=== PATIENT | male | born 1960 | race Caucasian/White ===

== ENCOUNTER → 2019-11-01 16:20 | Outpatient (BNVA) | payer MEDICAID, SELFPAY | PROVIDERS: Family Provider Internal Medicine; PCP Internal Medicine; Visit Provider Internal Medicine | DX: E03.9 Hypothyroidism, unspecified (principal); F20.0 Paranoid schizophrenia; E11.69 Type 2 diabetes mellitus with other specified complication; E78.5 Hyperlipidemia, unspecified | CPT/HCPCS: 84443 ==

== ENCOUNTER → 2019-11-02 13:50 | Outpatient (BNVA) | payer MEDICAID, SELFPAY | PROVIDERS: Family Provider Internal Medicine; PCP Internal Medicine; Visit Provider Nurse Practitioner | DX: F20.89 Other schizophrenia (principal); F17.210 Nicotine dependence, cigarettes, uncomplicated | CPT/HCPCS: 99213 ==

== ENCOUNTER → 2019-11-30 13:22 | Outpatient (BNVA) | payer MEDICAID, SELFPAY | PROVIDERS: Family Provider Internal Medicine; PCP Internal Medicine; Visit Provider Nurse Practitioner | DX: M47.817 Spondylosis without myelopathy or radiculopathy, lumbosacral region (principal); Z79.891 Long term (current) use of opiate analgesic; Z87.891 Personal history of nicotine dependence | CPT/HCPCS: 99213 ==

== ENCOUNTER → 2020-01-18 07:43 | Outpatient (BNVA) | payer MEDICAID, SELFPAY | PROVIDERS: Family Provider Internal Medicine; PCP Internal Medicine; Visit Provider Nurse Practitioner | DX: M47.817 Spondylosis without myelopathy or radiculopathy, lumbosacral region (principal); F20.0 Paranoid schizophrenia | CPT/HCPCS: 99213 ==

== ENCOUNTER → 2020-03-27 13:54 | Outpatient (BNVA) | payer MEDICAID, SELFPAY | PROVIDERS: Family Provider Internal Medicine; PCP Internal Medicine; Visit Provider Anesthesiology | DX: M47.817 Spondylosis without myelopathy or radiculopathy, lumbosacral region (principal); M51.26 Other intervertebral disc displacement, lumbar region; M51.04 Intervertebral disc disorders with myelopathy, thoracic region; M54.9 Dorsalgia, unspecified; Z79.891 Long term (current) use of opiate analgesic | CPT/HCPCS: 99214 ==

== ENCOUNTER → 2020-04-11 07:37 | Outpatient (BNVA) | payer MEDICAID, SELFPAY | PROVIDERS: Family Provider Internal Medicine; PCP Internal Medicine; Visit Provider Nurse Practitioner | DX: F20.89 Other schizophrenia (principal) | CPT/HCPCS: 99213 ==

== ENCOUNTER → 2020-05-22 13:05 | Outpatient (BNVA) | payer MEDICAID, SELFPAY | PROVIDERS: Family Provider Internal Medicine; PCP Internal Medicine; Visit Provider Anesthesiology | DX: M54.42 Lumbago with sciatica, left side (principal); M54.41 Lumbago with sciatica, right side; M51.04 Intervertebral disc disorders with myelopathy, thoracic region; M51.26 Other intervertebral disc displacement, lumbar region; M47.817 Spondylosis without myelopathy or radiculopathy, lumbosacral region; Z79.891 Long term (current) use of opiate analgesic; Z87.891 Personal history of nicotine dependence | CPT/HCPCS: 99214 ==

== ENCOUNTER → 2020-07-18 13:19 | Outpatient (BNVA) | payer MEDICAID, SELFPAY | PROVIDERS: Family Provider Internal Medicine; PCP Internal Medicine; Visit Provider Nurse Practitioner | DX: M47.817 Spondylosis without myelopathy or radiculopathy, lumbosacral region (principal); M51.04 Intervertebral disc disorders with myelopathy, thoracic region; M51.26 Other intervertebral disc displacement, lumbar region; M54.9 Dorsalgia, unspecified; Z79.891 Long term (current) use of opiate analgesic | CPT/HCPCS: 99214 ==

== ENCOUNTER → 2020-08-15 13:06 | Outpatient (BNVA) | payer MEDICAID, SELFPAY | PROVIDERS: Family Provider Internal Medicine; PCP Internal Medicine; Visit Provider Anesthesiology | DX: M54.42 Lumbago with sciatica, left side (principal); M47.817 Spondylosis without myelopathy or radiculopathy, lumbosacral region; M51.26 Other intervertebral disc displacement, lumbar region; M51.04 Intervertebral disc disorders with myelopathy, thoracic region; M54.9 Dorsalgia, unspecified; Z79.891 Long term (current) use of opiate analgesic | CPT/HCPCS: 99214 ==

== ENCOUNTER → 2020-09-03 07:33 | Outpatient (BNVA) | payer MEDICAID, SELFPAY | PROVIDERS: Family Provider Internal Medicine; PCP Internal Medicine; Visit Provider Nurse Practitioner | DX: F41.1 Generalized anxiety disorder (principal); F33.1 Major depressive disorder, recurrent, moderate; F20.89 Other schizophrenia | CPT/HCPCS: 99214 ==

== ENCOUNTER → 2020-10-16 09:53 | Outpatient (BNVA) | payer MEDICAID, SELFPAY | PROVIDERS: Family Provider Internal Medicine; PCP Internal Medicine; Visit Provider Nurse Practitioner | DX: M54.9 Dorsalgia, unspecified (principal); Z79.891 Long term (current) use of opiate analgesic; M47.817 Spondylosis without myelopathy or radiculopathy, lumbosacral region; M51.26 Other intervertebral disc displacement, lumbar region; M51.04 Intervertebral disc disorders with myelopathy, thoracic region; F17.210 Nicotine dependence, cigarettes, uncomplicated | CPT/HCPCS: 99214 ==

== ENCOUNTER → 2020-11-15 11:25 | Outpatient (BNVA) | payer OTHER, SELFPAY | PROVIDERS: Family Provider Internal Medicine; PCP Internal Medicine; Visit Provider Nurse Practitioner | DX: F41.1 Generalized anxiety disorder (principal); Z79.899 Other long term (current) drug therapy | CPT/HCPCS: 80061; 83036 ==

== ENCOUNTER → 2020-12-25 09:46 | Outpatient (BNVA) | payer MEDICAID, SELFPAY ==
[2020-11-16 08:58] VITALS: BP 100/66; BMI 34.0
== END ==
PROVIDERS: Family Provider Internal Medicine; PCP Internal Medicine; Visit Provider Nurse Practitioner
DX: M47.817 Spondylosis without myelopathy or radiculopathy, lumbosacral region (principal); M51.04 Intervertebral disc disorders with myelopathy, thoracic region; M51.26 Other intervertebral disc displacement, lumbar region; M54.9 Dorsalgia, unspecified; F17.210 Nicotine dependence, cigarettes, uncomplicated; Z79.891 Long term (current) use of opiate analgesic
CPT/HCPCS: 99213

== ENCOUNTER 2021-01-18 14:27 | Emergency (ER) | payer MEDICAID, SELFPAY ==
[2020-11-16 08:58] VITALS: BP 100/66; BMI 34.0
[2021-01-18 14:30] VITALS: BP 118/91; PULSE 123; RESP 18; TEMP 39.2; O2SAT 95; BMI 32.5
--- NOTE | 2021-01-18 14:40 | XRR_ITS ---
PROCEDURE INFORMATION: Exam: XR Chest Exam date and time: 01/18/2021 3:46 PM Age: 60 years old Clinical indication: Fever TECHNIQUE: Imaging protocol: XR of the chest Views: 1 view. COMPARISON: CR Chest 1 [place] [id number] 06/15/2018 2:17 PM FINDINGS: Lungs: Unremarkable. No consolidation. Pleural spaces: Unremarkable. No pleural effusion. No pneumothorax. Heart/Mediastinum: Unremarkable. No cardiomegaly. Bones/joints: Unremarkable. XR/XR chest 1V portable [id number] IMPRESSION: No acute findings.
[2021-01-18 14:45] LABS: Basophils # 0.1 10^3/uL (0.0-0.1); Basophils % 0.5 %; Eosinophils % 0.4 %; Hematocrit 54.1 % (42.0-52.0); Hemoglobin 18.1 g/dL (11.7-16.6); Lymphocytes # 0.9 10^3/uL (0.8-4.8); Mean Corpuscular HGB Conc 33.5 g/dL (30.0-36.0); Mean Corpuscular Hemoglobin 27.7 pg (28.0-34.0); Mean Corpuscular Volume 82.7 fL (80-94); Monocytes % 10.8 %; Neutrophils % 79.1 %; Nucleated Red Blood Cells % 0 %; Platelet Count 262 10^3/cmm (130-400); Red Blood Count 6.54 10^6/uL (4.1-5.3); Red Cell Distribution Width 13.9 % (12.1-15.1); White Blood Count 9.5 10^3/uL (4.0-10.0)
--- NOTE | 2021-01-18 14:51 | CTR_ITS ---
PROCEDURE INFORMATION: Exam: CT Abdomen And Pelvis With Contrast Exam date and time: 01/18/2021 3:24 PM Age: 60 years old Clinical indication: Nausea and vomiting; Abdominal pain; Generalized; Prior surgery; Surgery type: Appy, hernia; Additional info: N/v/d, abd pain TECHNIQUE: Imaging protocol: Computed tomography of the abdomen and pelvis with contrast. Total images: 257 Radiation optimization: All CT scans at this facility use at least one of these dose optimization techniques: automated exposure control; mA and/or kV adjustment per patient size (includes targeted exams where dose is matched to clinical indication); or iterative reconstruction. Contrast material: OMNI 300; Contrast volume: 95 ml; Contrast route: INTRAVENOUS (IV); COMPARISON: No relevant prior studies available. RADIATION DOSE METRICS: Total DLP (mGy-cm): 1822.15 FINDINGS: Lungs: Limited assessment of the lung bases fails to reveal evidence for active cardiopulmonary process. Minimal dependent atelectasis. Liver: No visible hepatic mass or cystic structure. Gallbladder and bile ducts: Normal. No calcified stones. No ductal dilation. Pancreas: Findings suggest the potential for chronic pancreatitis. No evidence for acute exacerbation of chronic pancreatitis. No visible pancreatic ductal ectasia. Spleen: Scattered calcified splenic granulomas. Spleen otherwise unremarkable. Adrenal glands: Adrenal glands unremarkable. Kidneys and ureters: No hydronephrosis or perinephric fluid. No visible nephrolithiasis. Bilateral rare very small simple appearing renal cortical cysts. No follow-up recommended. No visible ureterolithiasis. Stomach and bowel: Diverticulosis coli without visible evidence for acute diverticulitis. Nonobstructive bowel pattern. No visible significant adynamic or reactive ileus. Appendix: No evidence of appendicitis. Intraperitoneal space: No visible pneumoperitoneum or intraperitoneal ascites. No visible evidence of mesenteric lymphadenitis or active mesenteritis/panniculitis. Vasculature: Portal vein patent. The abdominal aorta is nonaneurysmal. Mild arterial sclerotic disease. Lymph nodes: No current visible evidence of active mesenteric or retroperitoneal lymphadenopathy. Urinary bladder: Urinary bladder unremarkable. Reproductive: Mild prostate enlargement. Bones/joints: No visible active or acute osseous pathology. Soft tissues: Unremarkable. CT/CT abdomen pelvis w con* [id number] IMPRESSION: 1. Currently no visible evidence of acute abdominal or pelvic pathologic process. 2. Findings suggest the potential for chronic pancreatitis. No evidence for acute exacerbation of chronic pancreatitis. 3. Diverticulosis coli without visible evidence for acute diverticulitis. COMMENTS: Consistent with the [employer]'s Incidental Findings Committee white paper (J Am Manda Radiol 2018): Any incidental renal lesion less than 1 cm or classified as too small to characterize, or any incidental cystic renal lesion characterized as simple-appearing, is likely benign. No follow-up imaging is recommended for these lesions per consensus recommendations based on imaging criteria. Radiation Dose CTDIVOL = (mGy): DLP = 1822.15 (mGy-cm)
--- NOTE | 2021-01-18 14:51 | ECG_ITS ---
[facility] Test Date: 2021-01-18 Pat Name: Junior Barrios Department: Room: Gender: Male Healthcare Account Manager: : 1960 Requested By: Kate Park Order Number: [id number] Sridevi MD: Dung Villagomez M.D. Measurements Intervals [place] Rate: 127 P: 52 IA: 153 QRS: -56 QRSD: 93 T: 54 QT: 328 QTc: 477 Interpretive Statements SINUS TACHYCARDIA PATTERN CONSISTENT WITH PULMONARY DISEASE LEFT ANTERIOR FASCICULAR BLOCK [QRS AXIS <= -45, QR IN I, RS IN II] MINIMAL ST DEPRESSION [0.025+ mV ST DEPRESSION] Compared to ECG 06/15/2018 17:22:07 Left anterior fascicular block now present ST (T wave) deviation now present Sinus rhythm no longer present Electronically Signed On 01-18-2021 18:30:13 CDT by Dung Villagomez M.D. [id number]
[2021-01-18 15:05] LABS: Alanine Aminotransferase 22 U/L (0-41); Albumin Level 4.7 g/dL (3.5-5.2); Alkaline Phosphatase 118 IU/L (40-130); Anion Gap 19.1 (5-19); Aspartate Amino Transferase 18 U/L (0-40); Blood Urea Nitrogen 21 mg/dL (6-20); Calcium 8.9 mg/dL (8.5-10.5); Carbon Dioxide 21 mmol/L (22-29); Chloride 102 mmol/L (98-107); Globulin 2.8 g/dL (1.3-4.6); Glomerular Filtration Rate 115.4 mL/min (90-130); Glucose 155 mg/dL (65-115); Lipase 16 U/L (13-60); Osmolality Calculated 294 mOsm/kg (285-295); Potassium 3.1 mmol/L (3.5-5.1); Sodium 139 mmol/L (136-145); Total Bilirubin 0.4 mg/dL (0.15-1.2); Total Protein 7.5 g/dL (6.6-8.7)
--- NOTE | 2021-01-18 15:10 | W.ED.NAVMDI ---
Documented by User: JEF Cook 01/19/21 07:30 HPI - Nausea/Vomiting/Diarrhea General: Chief complaint: Nausea/Vomiting/Diarrhea Stated complaint: N/V/D Time Seen by Provider: 01/18/21 14:31 Source: patient and EMS Mode of arrival: EMS Limitations: no limitations History of Present Illness: HPI Narrative: 60-year-old male patient presents to the emergency department with nausea vomiting diarrhea x3 days. He has history of schizophrenia, lives at [facility], he requires assistance with medication; he reports his schizophrenia is currently controlled, denies auditory or visual hallucinations. He denies ill contacts, states cannot stop throwing up and diarrhea is persistent. He states has not been able to eat or drink anything in 3 days. He has history of diabetes, [id number] diabetes. He denies new medications or ill contacts. He reports chills but denies fever. He states has not been able to hold down his medication due to vomiting. He denies hematemesis or hematochezia. He denies abdominal pain but describes discomfort and bloating. He reports discomfort in the upper part of the abdomen. Patient received 4 mg Zofran via EMS. He reports previous episode of similar event in the past, he reports use of Zofran helped. MD elicited complaint: nausea, vomiting, diarrhea and abdominal pain (Discomfort) Onset (ago): day(s) (3) Description of diarrhea: watery Associated nausea: Yes Exacerbating factors: none Relieving factors: none Context: other (Denies recent use of antibiotics) Associated symtoms: Reports bloating, dysuria, fatigue, fevers/chills, anorexia, malaise, nausea and weakness; Denies change in vision, chest pain, diaphoresis, epistaxis, headache(s) or palpitations Review of Systems General: Reports: 10 or more systems reviewed and unremarkable except in HPI and below Const: Reports: fatigue and malaise; Denies: fever(s), chills or diaphoresis Eyes: Denies: change in vision, blurry vision, eye discomfort or eye redness ENMT: Denies: throat pain, uvular edema, dental pain, halitosis, disequilibrium, nasal discharge, nasal congestion or epistaxis Card: Denies: chest pain, palpitations, irregular heart rhythm, swelling of feet/ankles, lightheadedness, dyspnea on exertion, orthopnea or leg pain with exertion Resp: Denies: dyspnea, productive cough, non-productive cough, wheezing, hemoptysis or chest congestion GI: Reports: abdominal pain, nausea, vomiting, diarrhea and bloating; Denies: hematemesis, coffee ground emesis, heartburn, constipation or pain on defecation : Reports: dysuria; Denies: difficulty urinating or difficulty starting urination Musc: Reports: back pain (Chronic, not changed); Denies: neck pain, joint swelling or joint stiffness Skin/Breast: Denies: rash, pruritus, erythema, skin tenderness or changes in skin color Neuro: Denies: headache(s), weakness in extremities or behavioral changes Demarco/Lymph: Denies: easy bruising PFSH ED PFSH: Medical History Diabetes 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 Generalized anxiety disorder Hypothyroidism Long-term current use of opiate analgesic Lumbar disc displacement without myelopathy Major depressive disorder, recurrent, moderate Other schizophrenia Pain management contract signed Paranoid schizophrenia Spondylosis without myelopathy or radiculopathy, lumbosacral region Surgical History Hx of appendectomy Hx of hernia repair RIGHT INGUINAL Family History Mother Cancer Grandmother Diabetes Social History Smoking and tobacco status: current every day smoker cigarettes Packs smoked per day: 1 Second hand smoke exposure: Yes Smoking risk assessment/counseling performed?: No Alcohol intake: former Adopted: No Caregiver/support person: Yes Lives independently: No Housing: Assisted Living Facility Marital status: Number of children: 0 Highest education level completed: Associate Degree: Occupational, Technical, Vocational Program service: Yes status: Discharged branch: [employer] Known or Potential Exposure: None Current occupational status: disabled Current occupational exposures/hazards: No Pets and animals: Yes Pets & animals: cat(s) Pets & animal details: outside History of recent travel: No Leisure activites: reading Sexually active: No Current gender identity: Male Cee/[employer]: Nondenominational Special cee needs: No Agree to transfusion: Yes Financial difficulty paying for basics: Somewhat Hard Physical Exam Const: COMMON NORMALS: no acute distress, patient oriented x3 and alert GENERAL APPEARANCE: cooperative, well kempt, well developed, ill appearing, frail appearing and well hydrated NUTRITIONAL APPEARANCE: overweight ORIENTATION/CONSCIOUSNESS: Yes awake, Yes oriented to person, Yes oriented to place and Yes oriented to time HENMT: COMMON NORMALS: normocephalic, atraumatic, external ears normal, Normal external nose present and moist oral mucous membranes HEAD & SCALP: normal to inspection, normocephalic and atraumatic FACE & SINUS: normal facial exam and face symmetric NOSE: Normal external nose present and No nasal polyps present EXTERNAL EAR: Yes external ears normal MOUTH: lip normal and moist mucous membranes abnormal (Dry) THROAT: posterior oropharynx normal and uvula midline; no uvular edema Eye: COMMON NORMALS: Equal, round and reactive pupils present and EOMs intact bilaterally GENERAL EYE: appearance normal, both eyes and all related structures PUPIL: Yes Equal, round and reactive pupils present Neck/C-Spine: COMMON NORMALS: full ROM, no lymphadenopathy and supple GENERAL: Yes normal visual inspection and Yes trachea midline CERVICAL SPINE: Yes cervical ROM normal Lymph: LYMPHATIC: no lymphadenopathy noted Chest: COMMONS NORMALS: normal inspection of the chest and normal palpation of entire chest wall Resp: COMMON NORMALS: normal respiratory effort, No retractions, No use of accessory muscles and clear to auscultation bilaterally EFFORT & INSPECTION: Yes able to speak in complete sentences, No labored and No audible wheezes AUSCULTATION: clear to auscultation bilaterally Cardio: COMMON NORMALS: regular rate, regular rhythm, S1 normal heart sound present, S2 normal heart sound present and Peripheral pulses 2+ throughout RATE: regular rate RHYTHM: regular rhythm HEART SOUNDS: S1 normal heart sound present and S2 normal heart sound present PERIPHERAL PULSES: Peripheral pulses 2+ throughout GI: COMMON NORMALS: Normal to inspection, nondistended, normoactive bowel sounds present and Soft to palpation INSPECTION: Yes normal to inspection, No abdominal wall ecchymosis, Yes abdominal distension and Yes central obesity AUSCULTATION: Yes Hypoactive bowel sounds present PALPATION: Yes Soft to palpation, Yes Tenderness to palpation present (GI) Details: LUQ and RUQ, No Hernia present and No Abdominal wall crepitus present : COMMON NORMALS: Yes no CVA tenderness BLADDER/KIDNEY EXAM: Yes no CVA tenderness Back/Pelvis: COMMON NORMALS: no CVA tenderness Extremity: COMMON NORMALS: normal to inspection, full ROM, capillary refill normal, no clubbing, cyanosis or edema, no calf tenderness and no pedal edema GENERAL: Yes normal exam except as noted Neuro: JUANA COMA SCALE: document GCS findings [place] coma scale eye opening: Spontaneous [place] coma scale verbal response: Orientated [place] coma scale motor response: Obey commands [place] coma scale total score: 15 COMMON NORMALS: patient oriented x3 and no focal motor deficits SENSORIUM/ORIENTATION: Yes alert, Yes oriented to person, Yes oriented to place and Yes oriented to time SPEECH: speech normal MOTOR EXAM: 5/5 motor strength present throughout Psych: COMMON NORMALS: mental status grossly normal, Normal thought process present and cooperative APPEARANCE: Yes well kempt ACTIVITY/MOTOR BEHAVIOR: Yes appropriate eye contact THOUGHT PROCESS: Normal thought process present THOUGHT CONTENT: Yes Normal thought content present ATTENTION/CONCENTRATION: Yes attention grossly intact MEMORY/COGNITION: Yes memory grossly intact INSIGHT: Good insight present (Psych) JUDGEMENT: Good judgement present (Psych) Skin: COMMON NORMALS: no rashes or lesions noted and turgor normal GENERAL SKIN EXAM: no rashes or lesions noted and turgor normal Course ED course: 60-year-old male patient presents to the emergency department due to nausea vomiting diarrhea x3 days. He was administered Zofran without improvement. Fever was 102.5 upon arrival to the ED, chest x-ray without acute abnormality, CT abdomen and pelvis completed due to patient's complaint of nausea vomiting with mild tenderness to the right upper and left upper quadrants. CT scan was without pancreatitis or acute intra-abdominal findings. He has history of nausea vomiting diarrhea episodes with difficulty controlling symptoms once they occur per patient. Zofran did not alleviate his nausea vomiting, promethazine and Benadryl administered as patient continues to exhibit vomiting. He was not able to tolerate p.o. fluids prior to promethazine Benadryl administration. He did receive 2 L of normal saline here in the ED. Glucose level 155. Urinalysis without UTI. Lipase was normal. Transfer of care to [facility] due to end of shift. Patient states wants to go home if vomiting and nausea can be controlled. Vital Signs: Vital signs: Vital Signs Temperature 102.5 F H 01/18/21 14:30 Pulse Rate 129 H 01/18/21 18:20 Respiratory Rate 16 01/18/21 18:20 Blood Pressure 145/89 01/18/21 18:20 Pulse Oximetry 97 01/18/21 18:20 MDM - Nausea/Vomiting/Diarrhea Lab Data: Labs: Lab Results 01/18/21 01/18/21 01/18/21 Range/Units 13:10 14:38 14:38 WBC 9.5 (4.0-10.0) 10^3/ uL RBC 6.54 H (4.1-5.3) 10^6/u L Hgb 18.1 H (11.7-16.6) g/dL Hct 54.1 H (42.0-52.0) % MCV 82.7 (80-94) fL MCH 27.7 L (28.0-34.0) pg MCHC 33.5 (30.0-36.0) g/dL RDW 13.9 (12.1-15.1) % Plt Count 262 (130-400) 10^3/c mm MPV 10.0 (7.4-10.4) fL Neut % (Auto) 79.1 % Lymph % (Auto) 9.0 % Gentry % (Auto) 10.8 % Eos % (Auto) 0.4 % Baso % (Auto) 0.5 % Neut # (Auto) 7.50 (1.8-7.7) 10^3/u L Lymph # (Auto) 0.9 (0.8-4.8) 10^3/u L Gentry # (Auto) 1.0 H (0.2-0.9) 10^3/u L Eos # (Auto) 0.0 (0.0-0.8) 10^3/u L Baso # (Auto) 0.1 (0.0-0.1) 10^3/u L Nucleated RBC % (a uto) 0 % Nucleated RBCs # 0.0 /100WBC Sodium 139 (136-145) mmol/L Potassium 3.1 L (3.5-5.1) mmol/L Chloride 102 (98-107) mmol/L Carbon Dioxide 21 L (22-29) mmol/L Anion Gap 19.1 H (5-19) BUN 21 H (6-20) mg/dL Creatinine 0.7 (0.7-1.2) mg/dL GFR Calculation 115.4 (90-130) mL/min Glucose 155 H (65-115) mg/dL Calculated Osmolal ity 294 (285-295) mOsm/k g Lactate 2.2 (0.5-2.2) mmol/L Calcium 8.9 (8.5-10.5) mg/dL Total Bilirubin 0.4 (0.15-1.2) mg/dL AST 18 (0-40) U/L ALT 22 (0-41) U/L Alkaline Phosphata se 118 (40-130) IU/L Troponin T Baselin e (0-15) ng/L Troponin T 120 Min [place] (0-15) ng/L Delta Troponin T (0-10) ABS# Total Protein 7.5 (6.6-8.7) g/dL Albumin 4.7 (3.5-5.2) g/dL Globulin 2.8 (1.3-4.6) g/dL Lipase 16 (13-60) U/L Urine Color (Yellow) Urine Appearance (CLEAR) Urine pH (5-7) Ur Specific Gravit y (1.005-1.030) Urine Protein (Negative) Urine Glucose (UA) (Normal) Urine Ketones (Negative) Urine Blood (Negative) Urine Nitrate (Negative) Urine Bilirubin (Negative) Urine Urobilinogen (Negative) mg/dL Ur Leukocyte Nury ase (Negative) Urine RBC (0-2) /hpf Urine WBC (0-5) /hpf Ur Squamous Epith Cells (0-5) /hpf Amorphous Sediment Urine Bacteria (NONE) /hpf Urine Mucus /hpf 01/18/21 01/18/21 01/18/21 Range/Units 14:38 16:04 16:37 WBC (4.0-10.0) 10^3/ uL RBC (4.1-5.3) 10^6/u L Hgb (11.7-16.6) g/dL Hct (42.0-52.0) % MCV (80-94) fL MCH (28.0-34.0) pg MCHC (30.0-36.0) g/dL RDW (12.1-15.1) % Plt Count (130-400) 10^3/c mm MPV (7.4-10.4) fL Neut % (Auto) % Lymph % (Auto) % Gentry % (Auto) % Eos % (Auto) % Baso % (Auto) % Neut # (Auto) (1.8-7.7) 10^3/u L Lymph # (Auto) (0.8-4.8) 10^3/u L Gentry # (Auto) (0.2-0.9) 10^3/u L Eos # (Auto) (0.0-0.8) 10^3/u L Baso # (Auto) (0.0-0.1) 10^3/u L Nucleated RBC % (a uto) % Nucleated RBCs # /100WBC Sodium (136-145) mmol/L Potassium (3.5-5.1) mmol/L Chloride (98-107) mmol/L Carbon Dioxide (22-29) mmol/L Anion Gap (5-19) BUN (6-20) mg/dL Creatinine (0.7-1.2) mg/dL GFR Calculation (90-130) mL/min Glucose (65-115) mg/dL Calculated Osmolal ity (285-295) mOsm/k g Lactate (0.5-2.2) mmol/L Calcium (8.5-10.5) mg/dL Total Bilirubin (0.15-1.2) mg/dL AST (0-40) U/L ALT (0-41) U/L Alkaline Phosphata se (40-130) IU/L Troponin T Baselin e 6 (0-15) ng/L Troponin T 120 Min [place] 6.08 (0-15) ng/L Delta Troponin T 0.08 (0-10) ABS# Total Protein (6.6-8.7) g/dL Albumin (3.5-5.2) g/dL Globulin (1.3-4.6) g/dL Lipase (13-60) U/L Urine Color Yellow (Yellow) Urine Appearance Clear (CLEAR) Urine pH 7 (5-7) Ur Specific Gravit y 1.000 L (1.005-1.030) Urine Protein 1+ H (Negative) Urine Glucose (UA) 2+ (Normal) Urine Ketones 1+ H (Negative) Urine Blood Neg (Negative) Urine Nitrate Negative (Negative) Urine Bilirubin 1+ H (Negative) Urine Urobilinogen Norm (Negative) mg/dL Ur Leukocyte Nury ase Negative (Negative) Urine RBC None (0-2) /hpf Urine WBC None (0-5) /hpf Ur Squamous Epith Cells Rare (0-5) /hpf Amorphous Sediment Not Reportable Urine Bacteria Trace (NONE) /hpf Urine Mucus Trace /hpf Imaging Data^: CXR: Radiologist's impression: [facility] [address] XRay Report Signed Patient: Junior Barrios Unit #: [id number] : 1960 Age/Sex: 60 / M ADM Date: 01/18/21 Loc: ER Room/Bed: Attending Dr: Ordering Provider/Ordering MD: Lacie Williamson DO Date of Service: 01/18/21 Procedure(s): XR chest 1V portable 40568 Accession Number(s): [id number] Report Number: [id number] PROCEDURE INFORMATION: Exam: XR Chest Exam date and time: 01/18/2021 3:46 PM Age: 60 years old Clinical indication: Fever TECHNIQUE: Imaging protocol: XR of the chest Views: 1 view. COMPARISON: CR Chest 1 [place] [id number] 06/15/2018 2:17 PM FINDINGS: Lungs: Unremarkable. No consolidation. Pleural spaces: Unremarkable. No pleural effusion. No pneumothorax. Heart/Mediastinum: Unremarkable. No cardiomegaly. Bones/joints: Unremarkable. XR/XR chest 1V portable [id number] IMPRESSION: No acute findings. Dictated By: Jayden Lindsey Signed By: Jayden Lindsey Signed Date/Time: 01/18/21 1600 DD/ 1559 CT Abd/Pel: Radiologist's impression: [employer] [address] [address] Scan Report Signed Patient: Junior Barrios Unit #: [id number] : 1960 Age/Sex: 60 / M ADM Date: 01/18/21 Loc: ER Room/Bed: Attending Dr: Ordering Provider/Ordering MD: Kate Long Date of Service: 01/18/21 Procedure(s): CT abdomen pelvis w con* [id number] Accession Number(s): [id number] Report Number: [id number] PROCEDURE INFORMATION: Exam: CT Abdomen And Pelvis With Contrast Exam date and time: 01/18/2021 3:24 PM Age: 60 years old Clinical indication: Nausea and vomiting; Abdominal pain; Generalized; Prior surgery; Surgery type: Appy, hernia; Additional info: N/v/d, abd pain TECHNIQUE: Imaging protocol: Computed tomography of the abdomen and pelvis with contrast. Total images: 257 Radiation optimization: All CT scans at this facility use at least one of these dose optimization techniques: automated exposure control; mA and/or kV adjustment per patient size (includes targeted exams where dose is matched to clinical indication); or iterative reconstruction. Contrast material: OMNI 300; Contrast volume: 95 ml; Contrast route: INTRAVENOUS (IV); COMPARISON: No relevant prior studies available. RADIATION DOSE METRICS: Total DLP (mGy-cm): 1822.15 FINDINGS: Lungs: Limited assessment of the lung bases fails to reveal evidence for active cardiopulmonary process. Minimal dependent atelectasis. Liver: No visible hepatic mass or cystic structure. Gallbladder and bile ducts: Normal. No calcified stones. No ductal dilation. Pancreas: Findings suggest the potential for chronic pancreatitis. No evidence for acute exacerbation of chronic pancreatitis. No visible pancreatic ductal ectasia. Spleen: Scattered calcified splenic granulomas. Spleen otherwise unremarkable. Adrenal glands: Adrenal glands unremarkable. Kidneys and ureters: No hydronephrosis or perinephric fluid. No visible nephrolithiasis. Bilateral rare very small simple appearing renal cortical cysts. No follow-up recommended. No visible ureterolithiasis. Stomach and bowel: Diverticulosis coli without visible evidence for acute diverticulitis. Nonobstructive bowel pattern. No visible significant adynamic or reactive ileus. Appendix: No evidence of appendicitis. Intraperitoneal space: No visible pneumoperitoneum or intraperitoneal ascites. No visible evidence of mesenteric lymphadenitis or active mesenteritis/panniculitis. Vasculature: Portal vein patent. The abdominal aorta is nonaneurysmal. Mild arterial sclerotic disease. Lymph nodes: No current visible evidence of active mesenteric or retroperitoneal lymphadenopathy. Urinary bladder: Urinary bladder unremarkable. Reproductive: Mild prostate enlargement. Bones/joints: No visible active or acute osseous pathology. Soft tissues: Unremarkable. CT/CT abdomen pelvis w con* [id number] IMPRESSION: 1. Currently no visible evidence of acute abdominal or pelvic pathologic process. 2. Findings suggest the potential for chronic pancreatitis. No evidence for acute exacerbation of chronic pancreatitis. 3. Diverticulosis coli without visible evidence for acute diverticulitis. COMMENTS: Consistent with the [place] [employer]'s Incidental Findings Committee white paper (J Am Manda Radiol 2018): Any incidental renal lesion less than 1 cm or classified as too small to characterize, or any incidental cystic renal lesion characterized as simple-appearing, is likely benign. No follow-up imaging is recommended for these lesions per consensus recommendations based on imaging criteria. Radiation Dose CTDIVOL = (mGy): DLP = 1822.15 (mGy-cm) Dictated By: Anmol Saleh Signed By: Anmol Saleh Signed Date/Time: 01/18/211608 DD/ 07 EKG Data^: EKG 1: EKG interpretation date: 01/18/21 EKG interpretation time: 15:15 Prior EKG tracings: not available for review Computer generated interpretation: Sinus tachycardia, left anterior fascicular block, minimal ST depression, abnormal EKG, ventricular rate 127 Discharge Plan Discharge Patient Disposition: Home Clinical Impression: Gastroenteritis, Dehydration Condition: Stable Prescriptions: New promethazine 12.5 mg tablet 12.5 mg PO Q4H PRN (Reason: nausea and vomiting) Qty: 10 RF: 0 Imodium A-D 2 mg capsule 2 mg PO Q4H PRN (Reason: loose stool) Qty: 20 RF: 0 No Action duloxetine [Cymbalta] 60 mg capsule,delayed release(DR/EC) 60 mg PO DAILY@0700 RF: 0 loperamide [Anti-Diarrheal (loperamide)] 2 mg capsule 2 mg PO Q6H PRN (Reason: loose stool) Qty: 30 RF: 0 meloxicam 15 mg tablet 15 mg PO DAILY Qty: 30 RF: 1 hydrocodone-acetaminophen 10-325 mg tablet 1 tab PO Q6H 30 Days Qty: 120 RF: 0 metoprolol tartrate 25 mg tablet 12.5 mg PO BID@699,1999 RF: 0 docusate sodium [Colace] 100 mg capsule 100 mg PO BID@699,1999 RF: 0 timolol maleate 0.5 % drops, once daily 1 drop ophthalmic (eye) BID@699,1999 RF: 0 senna 8.6 mg capsule 8.6 mg PO BID@699,1999 PRN (Reason: Constipation) RF: 0 dicyclomine 10 mg capsule 10 mg PO TID@0700,1199,1999 RF: 0 albuterol sulfate [ProAir HFA] 90 mcg/actuation HFA aerosol inhaler 2 puff INHALATION Q6H PRN (Reason: Shortness Of Breath) RF: 0 artifi.tears(hypromellose)(PF) 0.3 % drops 1 drop ophthalmic (eye) BID PRN (Reason: UNKNOWN) RF: 0 codeine-guaifenesin 6.3-100 mg/5 mL liquid 8 ml PO Q6H PRN (Reason: UNKNOWN) RF: 0 Cough Drops 2.7 mg lozenge 1.6 mg MUCOUS MEM Q4H PRN (Reason: Cough) RF: 0 hydroxyzine HCl 50 mg tablet 50 mg PO QID PRN (Reason: Anxiety) RF: 0 (DME) blood sugar diagnostic Strip See Rx Instructions .ROUTE .MEDSUPPLY Qty: 100 RF: 5 (DME) lancets Misc See Rx Instructions .ROUTE .MEDSUPPLY Qty: 100 RF: 5 (DME) blood-glucose meter Kit See Rx Instructions .ROUTE .MEDSUPPLY Qty: 1 RF: 0 levothyroxine 50 mcg capsule 50 mcg PO DAILY@0700 RF: 0 montelukast [Singulair] 10 mg tablet 10 mg PO DAILY@0700 RF: 0 omeprazole 40 mg capsule,delayed release(DR/EC) 40 mg PO DAILY@0700 RF: 0 polyethylene glycol 3350 [Miralax] 17 gram/dose powder 17 gm PO DAILY PRN (Reason: constipation) RF: 0 aspirin 325 mg tablet 325 mg PO DAILY@0700 RF: 0 losartan 100 mg tablet 100 mg PO DAILY@0700 RF: 0 spironolactone [Aldactone] 25 mg tablet 25 mg PO DAILY@0700 RF: 0 (DME) heating pads Pad See Rx Instructions .ROUTE .MEDSUPPLY Qty: 1 RF: 0 ondansetron HCl 4 mg Tablet 4 mg PO Q6H PRN (Reason: NAUSEA/VOMITING) RF: 0 Spiriva Respimat 2 puff inhalation DAILY@07 RF: 0 methocarbamol 500 mg tablet 500 mg PO TID PRN (Reason: Muscle Spasm) RF: 0 Fish Oil Concentrate 1,000 mg capsule 1,000 mg PO DAILY@699 RF: 0 simvastatin 40 mg tablet 40 mg PO DAILY@699 RF: 0 Zyprexa 15 mg tablet 15 mg PO BEDTIME@1999 RF: 0 Remeron 15 mg tablet 15 mg PO BEDTIME@1999 RF: 0 gabapentin 100 mg capsule 200 mg PO BID@699,1999 RF: 0 Flonase Allergy Relief 50 mcg/actuation spray,suspension 2 spray INTRANASAL DAILY@699 RF: 0 Namenda 10 mg tablet 10 mg PO BID@699,1999 RF: 0 Farxiga 10 mg tablet 10 mg PO DAILY@699 RF: 0 Discharge Orders: Discharge ED (Routine); Ordered 01/18/21 Ordered By: Santos Mccann Referrals: Chidi Singleton MD [Primary Care Provider] - Discharge Diet: Advance as tolerated and Clear Liquid Discharge Activity: Increase activity as tolerated Patient Instructions: Acute Nausea and Vomiting (ED), Opioid Safety Activity Restrictions/Additional Instructions: Drink plenty of fluids. Drink sips frequently. Start with clear liquids and then increase to a bland diet over the next 48 hours. Use Imodium for diarrhea. Follow-up with primary care for further treatment. Return to the emergency department for new concerns. Sign Out Sign Out Data: Patient Sign Out occurred on 01/18/21 at 17:32. Patient's care was discussed, and care was transferred from JEF oCok to Santos Mccann. 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 Generalized anxiety disorder Hypothyroidism Long-term current use of opiate analgesic Lumbar disc displacement without myelopathy Major depressive disorder, recurrent, moderate Other schizophrenia Pain management contract signed Paranoid schizophrenia Spondylosis without myelopathy or radiculopathy, lumbosacral region Surgical History Hx of appendectomy Hx of hernia repair RIGHT INGUINAL Family History Mother Cancer Grandmother Diabetes Social History Smoking and tobacco status: current every day smoker cigarettes Packs smoked per day: 1 Second hand smoke exposure: Yes Smoking risk assessment/counseling performed?: No Alcohol intake: former Adopted: No Caregiver/support person: Yes Lives independently: No Housing: Assisted Living Facility Marital status: Number of children: 0 Highest education level completed: Associate Degree: Occupational, Technical, Vocational Program service: Yes status: Discharged branch: [employer] Known or Potential Exposure: None Current occupational status: disabled Current occupational exposures/hazards: No Pets and animals: Yes Pets & animals: cat(s) Pets & animal details: outside History of recent travel: No Leisure activites: reading Sexually active: No Current gender identity: Male Cee/[employer]: Nondenominational Special cee needs: No Agree to transfusion: Yes Financial difficulty paying for basics: Somewhat Hard Course ED course: 1729, received patient from APRN. Baltazar awaiting labs and IV fluids. wjw Vital Signs: Vital signs: Vital Signs Temperature 102.5 F H 01/18/21 14:30 Pulse Rate 129 H 01/18/21 18:20 Respiratory Rate 16 01/18/21 18:20 Blood Pressure 145/89 01/18/21 18:20 Pulse Oximetry 97 01/18/21 18:20 MDM - Nausea/Vomiting/Diarrhea MDM Narrative: Medical decision making narrative: Patient was brought in for nausea and vomiting starting 3 days ago. Patient was seen by Kate Nicole, nurse practitioner, and I assumed care at her end of shift. Patient was able to tolerate oral fluids. Laboratory values indicated some dehydration. CT scan noted no significant abnormality. Patient was rehydrated with 2 L of IV fluids. Patient was given Zofran and Phenergan for nausea control. Patient was given 2 doses of Lomotil for diarrhea. Patient reported feeling better after IV fluids. We will treat for gastroenteritis with medication to help with nausea and vomiting and some Imodium for the diarrhea. Reviewed this with patient who agreed to plan. Lab Data: Labs: Lab Results 01/18/21 01/18/21 01/18/21 Range/Units 13:10 14:38 14:38 WBC 9.5 (4.0-10.0) 10^3/ uL RBC 6.54 H (4.1-5.3) 10^6/u L Hgb 18.1 H (11.7-16.6) g/dL Hct 54.1 H (42.0-52.0) % MCV 82.7 (80-94) fL MCH 27.7 L (28.0-34.0) pg MCHC 33.5 (30.0-36.0) g/dL RDW 13.9 (12.1-15.1) % Plt Count 262 (130-400) 10^3/c mm MPV 10.0 (7.4-10.4) fL Neut % (Auto) 79.1 % Lymph % (Auto) 9.0 % Gentry % (Auto) 10.8 % Eos % (Auto) 0.4 % Baso % (Auto) 0.5 % Neut # (Auto) 7.50 (1.8-7.7) 10^3/u L Lymph # (Auto) 0.9 (0.8-4.8) 10^3/u L Gentry # (Auto) 1.0 H (0.2-0.9) 10^3/u L Eos # (Auto) 0.0 (0.0-0.8) 10^3/u L Baso # (Auto) 0.1 (0.0-0.1) 10^3/u L Nucleated RBC % (a uto) 0 % Nucleated RBCs # 0.0 /100WBC Sodium 139 (136-145) mmol/L Potassium 3.1 L (3.5-5.1) mmol/L Chloride 102 (98-107) mmol/L Carbon Dioxide 21 L (22-29) mmol/L Anion Gap 19.1 H (5-19) BUN 21 H (6-20) mg/dL Creatinine 0.7 (0.7-1.2) mg/dL GFR Calculation 115.4 (90-130) mL/min Glucose 155 H (65-115) mg/dL Calculated Osmolal ity 294 (285-295) mOsm/k g Lactate 2.2 (0.5-2.2) mmol/L Calcium 8.9 (8.5-10.5) mg/dL Total Bilirubin 0.4 (0.15-1.2) mg/dL AST 18 (0-40) U/L ALT 22 (0-41) U/L Alkaline Phosphata se 118 (40-130) IU/L Troponin T Baselin e (0-15) ng/L Troponin T 120 Min [place] (0-15) ng/L Delta Troponin T (0-10) ABS# Total Protein 7.5 (6.6-8.7) g/dL Albumin 4.7 (3.5-5.2) g/dL Globulin 2.8 (1.3-4.6) g/dL Lipase 16 (13-60) U/L Urine Color (Yellow) Urine Appearance (CLEAR) Urine pH (5-7) Ur Specific Gravit y (1.005-1.030) Urine Protein (Negative) Urine Glucose (UA) (Normal) Urine Ketones (Negative) Urine Blood (Negative) Urine Nitrate (Negative) Urine Bilirubin (Negative) Urine Urobilinogen (Negative) mg/dL Ur Leukocyte Nury ase (Negative) Urine RBC (0-2) /hpf Urine WBC (0-5) /hpf Ur Squamous Epith Cells (0-5) /hpf Amorphous Sediment Urine Bacteria (NONE) /hpf Urine Mucus /hpf 01/18/21 01/18/21 01/18/21 Range/Units 14:38 16:04 16:37 WBC (4.0-10.0) 10^3/ uL RBC (4.1-5.3) 10^6/u L Hgb (11.7-16.6) g/dL Hct (42.0-52.0) % MCV (80-94) fL MCH (28.0-34.0) pg MCHC (30.0-36.0) g/dL RDW (12.1-15.1) % Plt Count (130-400) 10^3/c mm MPV (7.4-10.4) fL Neut % (Auto) % Lymph % (Auto) % Gentry % (Auto) % Eos % (Auto) % Baso % (Auto) % Neut # (Auto) (1.8-7.7) 10^3/u L Lymph # (Auto) (0.8-4.8) 10^3/u L Gentry # (Auto) (0.2-0.9) 10^3/u L Eos # (Auto) (0.0-0.8) 10^3/u L Baso # (Auto) (0.0-0.1) 10^3/u L Nucleated RBC % (a uto) % Nucleated RBCs # /100WBC Sodium (136-145) mmol/L Potassium (3.5-5.1) mmol/L Chloride (98-107) mmol/L Carbon Dioxide (22-29) mmol/L Anion Gap (5-19) BUN (6-20) mg/dL Creatinine (0.7-1.2) mg/dL GFR Calculation (90-130) mL/min Glucose (65-115) mg/dL Calculated Osmolal ity (285-295) mOsm/k g Lactate (0.5-2.2) mmol/L Calcium (8.5-10.5) mg/dL Total Bilirubin (0.15-1.2) mg/dL AST (0-40) U/L ALT (0-41) U/L Alkaline Phosphata se (40-130) IU/L Troponin T Baselin e 6 (0-15) ng/L Troponin T 120 Min [place] 6.08 (0-15) ng/L Delta Troponin T 0.08 (0-10) ABS# Total Protein (6.6-8.7) g/dL Albumin (3.5-5.2) g/dL Globulin (1.3-4.6) g/dL Lipase (13-60) U/L Urine Color Yellow (Yellow) Urine Appearance Clear (CLEAR) Urine pH 7 (5-7) Ur Specific Gravit y 1.000 L (1.005-1.030) Urine Protein 1+ H (Negative) Urine Glucose (UA) 2+ (Normal) Urine Ketones 1+ H (Negative) Urine Blood Neg (Negative) Urine Nitrate Negative (Negative) Urine Bilirubin 1+ H (Negative) Urine Urobilinogen Norm (Negative) mg/dL Ur Leukocyte Nury ase Negative (Negative) Urine RBC None (0-2) /hpf Urine WBC None (0-5) /hpf Ur Squamous Epith Cells Rare (0-5) /hpf Amorphous Sediment Not Reportable Urine Bacteria Trace (NONE) /hpf Urine Mucus Trace /hpf Discharge Plan Discharge Patient Disposition: Home Clinical Impression: Gastroenteritis, Dehydration Condition: Stable Prescriptions: New promethazine 12.5 mg tablet 12.5 mg PO Q4H PRN (Reason: nausea and vomiting) Qty: 10 RF: 0 Imodium A-D 2 mg capsule 2 mg PO Q4H PRN (Reason: loose stool) Qty: 20 RF: 0 No Action duloxetine [Cymbalta] 60 mg capsule,delayed release(DR/EC) 60 mg PO DAILY@0700 RF: 0 loperamide [Anti-Diarrheal (loperamide)] 2 mg capsule 2 mg PO Q6H PRN (Reason: loose stool) Qty: 30 RF: 0 meloxicam 15 mg tablet 15 mg PO DAILY Qty: 30 RF: 1 hydrocodone-acetaminophen 10-325 mg tablet 1 tab PO Q6H 30 Days Qty: 120 RF: 0 metoprolol tartrate 25 mg tablet 12.5 mg PO BID@699,1999 RF: 0 docusate sodium [Colace] 100 mg capsule 100 mg PO BID@699,1999 RF: 0 timolol maleate 0.5 % drops, once daily 1 drop ophthalmic (eye) BID@699,1999 RF: 0 senna 8.6 mg capsule 8.6 mg PO BID@699,1999 PRN (Reason: Constipation) RF: 0 dicyclomine 10 mg capsule 10 mg PO TID@0700,1199,1999 RF: 0 albuterol sulfate [ProAir HFA] 90 mcg/actuation HFA aerosol inhaler 2 puff INHALATION Q6H PRN (Reason: Shortness Of Breath) RF: 0 artifi.tears(hypromellose)(PF) 0.3 % drops 1 drop ophthalmic (eye) BID PRN (Reason: UNKNOWN) RF: 0 codeine-guaifenesin 6.3-100 mg/5 mL liquid 8 ml PO Q6H PRN (Reason: UNKNOWN) RF: 0 Cough Drops 2.7 mg lozenge 1.6 mg MUCOUS MEM Q4H PRN (Reason: Cough) RF: 0 hydroxyzine HCl 50 mg tablet 50 mg PO QID PRN (Reason: Anxiety) RF: 0 (DME) blood sugar diagnostic Strip See Rx Instructions .ROUTE .MEDSUPPLY Qty: 100 RF: 5 (DME) lancets Misc See Rx Instructions .ROUTE .MEDSUPPLY Qty: 100 RF: 5 (DME) blood-glucose meter Kit See Rx Instructions .ROUTE .MEDSUPPLY Qty: 1 RF: 0 levothyroxine 50 mcg capsule 50 mcg PO DAILY@0700 RF: 0 montelukast [Singulair] 10 mg tablet 10 mg PO DAILY@0700 RF: 0 omeprazole 40 mg capsule,delayed release(DR/EC) 40 mg PO DAILY@0700 RF: 0 polyethylene glycol 3350 [Miralax] 17 gram/dose powder 17 gm PO DAILY PRN (Reason: constipation) RF: 0 aspirin 325 mg tablet 325 mg PO DAILY@0700 RF: 0 losartan 100 mg tablet 100 mg PO DAILY@0700 RF: 0 spironolactone [Aldactone] 25 mg tablet 25 mg PO DAILY@0700 RF: 0 (DME) heating pads Pad See Rx Instructions .ROUTE .MEDSUPPLY Qty: 1 RF: 0 ondansetron HCl 4 mg Tablet 4 mg PO Q6H PRN (Reason: NAUSEA/VOMITING) RF: 0 Spiriva Respimat 2 puff inhalation DAILY@0700 RF: 0 methocarbamol 500 mg tablet 500 mg PO TID PRN (Reason: Muscle Spasm) RF: 0 Fish Oil Concentrate 1,000 mg capsule 1,000 mg PO DAILY@0700 RF: 0 simvastatin 40 mg tablet 40 mg PO DAILY@0700 RF: 0 Zyprexa 15 mg tablet 15 mg PO BEDTIME@2000 RF: 0 Remeron 15 mg tablet 15 mg PO BEDTIME@1999 RF: 0 gabapentin 100 mg capsule 200 mg PO BID@ RF: 0 Flonase Allergy Relief 50 mcg/actuation spray,suspension 2 spray INTRANASAL DAILY@699 RF: 0 Namenda 10 mg tablet 10 mg PO BID@ RF: 0 Farxiga 10 mg tablet 10 mg PO DAILY@0700 RF: 0 Discharge Orders: Discharge ED (Routine); Ordered 01/18/21 Ordered By: Santos Mccann Referrals: Chidi Singleton MD [Primary Care Provider] - Discharge Diet: Advance as tolerated and Clear Liquid Discharge Activity: Increase activity as tolerated Patient Instructions: Acute Nausea and Vomiting (ED), Opioid Safety Activity Restrictions/Additional Instructions: Drink plenty of fluids. Drink sips frequently. Start with clear liquids and then increase to a bland diet over the next 48 hours. Use Imodium for diarrhea. Follow-up with primary care for further treatment. Return to the emergency department for new concerns. Sign Out Sign Out Data: Patient Sign Out occurred on 01/18/21 at 17:32. Patient's care was discussed, and care was transferred from JEF Cook to Santos Mccann. Sign Out Comment: transfer of care to Santos Mccann, RUTH; phenergan and benadryl administered for continued n/v - failed Zofran, not able to tolerate PO fluids due to continued vomiting Last updated by Kate Long ARNP at 01/18/21 17:25 Coding Level of Care Code ED Mill Representative for Chg Fwd Exam Comprehensive
[2021-01-18] MEDS: sodium chloride 0.9% 1,000 ML 999 ML IV ×2 (15:22→16:51)
[2021-01-18] MEDS: ondansetron 2 mg/ML SDV 2 mL 4 MG IVP (15:22)
[2021-01-18 15:26] LABS: Troponin(5th) Baseline 6 ng/L (0-15)
[2021-01-18] MEDS: iohexol 300 mg/mL 100 mL Btl IV (15:36)
[2021-01-18 15:45] LABS: Lactate (Lactic Acid level) 2.2 mmol/L (0.5-2.2)
[2021-01-18 16:13] VITALS: BP 158/101; PULSE 124; RESP 20; O2SAT 97
[2021-01-18 16:38] LABS: Add Urine Culture? No; Add Urine Microscopic? YES; Bacteria Urine TRACE /hpf; Bilirubin Urine 1+ (Negative); Blood Urine Neg (Negative); Glucose Urine UA 2+ (Normal); Ketones Urine 1+ (Negative); Leukocyte Esterase Urine Negative (Negative); Mucus Urine TRACE /hpf; Nitrate Urine Negative (Negative); Protein Urine 1+ (Negative); Squamous Epithelial Cell Urine RARE /hpf (0-5); Urine Appearance Clear (CLEAR); Urine Color Yellow (Yellow); Urobilinogen Urine Norm (Negative); pH Urine 7 (5-7)
[2021-01-18] MEDS: acetaminophen 500 mg Tablet 1000 MG PO (16:49)
[2021-01-18] MEDS: famotidine 20 mg/2 mL INJ 40 MG IVP (16:50)
[2021-01-18] MEDS: potassium chloride ER 20 mEq Tablet 40 MEQ PO (16:50)
[2021-01-18] MEDS: promethazine 25 mg/mL SDV 1 mL IM (16:51)
--- NOTE | 2021-01-18 16:51 | ECG_ITS ---
[facility] Test Date: 2021-01-18 Pat Name: Junior Barrios Department: Room: Gender: Male Hearing Aid Dispenser: : 1960 Requested By: Kate Park Order Number: [id number] Sridevi MD: Dung Villagomez M.D. Measurements Intervals [place] Rate: 127 P: 38 AL: 161 QRS: -53 QRSD: 90 T: 28 QT: 403 QTc: 587 Interpretive Statements SINUS TACHYCARDIA LEFT AXIS DEVIATION [QRS AXIS < -30] PATTERN CONSISTENT WITH PULMONARY DISEASE NONSPECIFIC ST & T-WAVE ABNORMALITY Compared to ECG 01/18/2021 15:14:58 Left-axis deviation now present T-wave abnormality now present Left anterior fascicular block no longer present ST (T wave) deviation no longer present Electronically Signed On 01-18-2021 18:33:33 CDT by Dung Villagomez M.D. [id number]
[2021-01-18 17:11] LABS: Troponin 5 2HR 6.08 ng/L (0-15); Troponin 5 2HR Delta 0.08 ABS# (0-10)
[2021-01-18] MEDS: diphenhydrAMINE 50 mg/mL SDV 1mL 12.5 MG IVP (17:34)
[2021-01-18 18:08] VITALS: BP 120/78; PULSE 76; RESP 18; O2SAT 97
[2021-01-18] MEDS: diphenoxylate/atropine Tablet 2 TAB PO (18:11)
[2021-01-18] MEDS: promethazine 25 mg Tablet 12.5 MG PO (18:11)
[2021-01-18 18:20] VITALS: BP 145/89; PULSE 129; RESP 16; O2SAT 97
== END 2021-01-18 18:41 | disposition home or self-care (01) ==
PROVIDERS: Nurse Practitioner Family; Emergency Provider Nurse Practitioner Family; PCP Internal Medicine
DX: K52.9 Noninfective gastroenteritis and colitis, unspecified (principal); E86.0 Dehydration; Z79.82 Long term (current) use of aspirin; E11.9 Type 2 diabetes mellitus without complications; F17.210 Nicotine dependence, cigarettes, uncomplicated
CPT/HCPCS: 36415; 71045; 74177; 80053; 81001; 83605; 83690; 84484; 85025; 87040; 93005; 96361; 96372; 96374; 96375; 99284; J1200; J2405; J2550; J3490; J7030; Q0169; Q9967

== ENCOUNTER → 2021-02-20 12:48 | Outpatient (BNVA) | payer MEDICAID, SELFPAY ==
[2020-11-16 08:58] VITALS: BP 100/66; BMI 34.0
== END ==
PROVIDERS: PCP Internal Medicine; Visit Provider Anesthesiology
DX: M47.817 Spondylosis without myelopathy or radiculopathy, lumbosacral region (principal); M51.04 Intervertebral disc disorders with myelopathy, thoracic region; M51.26 Other intervertebral disc displacement, lumbar region; M54.9 Dorsalgia, unspecified; F17.210 Nicotine dependence, cigarettes, uncomplicated; Z79.891 Long term (current) use of opiate analgesic
CPT/HCPCS: 99213

== ENCOUNTER → 2021-04-01 14:38 | Outpatient (BNVA) | payer MEDICAID, SELFPAY ==
[2020-11-16 08:58] VITALS: BP 100/66; BMI 34.0
== END ==
PROVIDERS: PCP Internal Medicine; Visit Provider Nurse Practitioner
DX: F33.1 Major depressive disorder, recurrent, moderate (principal); F41.1 Generalized anxiety disorder; F20.89 Other schizophrenia
CPT/HCPCS: 99214

== ENCOUNTER → 2021-04-17 13:44 | Outpatient (BNVA) | payer MEDICAID, SELFPAY ==
[2020-11-16 08:58] VITALS: BP 100/66; BMI 34.0
== END ==
PROVIDERS: PCP Internal Medicine; Visit Provider Anesthesiology
DX: M47.817 Spondylosis without myelopathy or radiculopathy, lumbosacral region (principal); M51.04 Intervertebral disc disorders with myelopathy, thoracic region; M51.26 Other intervertebral disc displacement, lumbar region; M54.9 Dorsalgia, unspecified; F17.210 Nicotine dependence, cigarettes, uncomplicated; Z79.891 Long term (current) use of opiate analgesic; Z79.1 Long term (current) use of non-steroidal anti-inflammatories (NSAID)
CPT/HCPCS: 99213

== ENCOUNTER → 2021-05-13 12:07 | Outpatient (BNVA) | payer MEDICAID, SELFPAY ==
[2020-11-16 08:58] VITALS: BP 100/66; BMI 34.0
== END ==
PROVIDERS: PCP Internal Medicine; Visit Provider Psychiatry & Neurology Psychiatry
DX: F33.1 Major depressive disorder, recurrent, moderate (principal); F41.1 Generalized anxiety disorder; F20.0 Paranoid schizophrenia; F17.200 Nicotine dependence, unspecified, uncomplicated
CPT/HCPCS: 99214

== ENCOUNTER → 2021-06-26 13:51 | Outpatient (BNVA) | payer MEDICAID, SELFPAY ==
[2020-11-16 08:58] VITALS: BP 100/66; BMI 34.0
== END ==
PROVIDERS: PCP Internal Medicine; Visit Provider Anesthesiology
DX: M47.817 Spondylosis without myelopathy or radiculopathy, lumbosacral region (principal); M51.04 Intervertebral disc disorders with myelopathy, thoracic region; M51.26 Other intervertebral disc displacement, lumbar region; F17.210 Nicotine dependence, cigarettes, uncomplicated; Z79.1 Long term (current) use of non-steroidal anti-inflammatories (NSAID); Z79.891 Long term (current) use of opiate analgesic
CPT/HCPCS: 99213

== ENCOUNTER → 2021-08-07 13:05 | Outpatient (BNVA) | payer MEDICAID, SELFPAY ==
[2021-06-26 15:13] VITALS: BP 100/66; BMI 34.0
== END ==
PROVIDERS: PCP Internal Medicine; Visit Provider Psychiatry & Neurology Psychiatry
DX: F33.1 Major depressive disorder, recurrent, moderate (principal); F41.1 Generalized anxiety disorder; F20.0 Paranoid schizophrenia; F17.210 Nicotine dependence, cigarettes, uncomplicated
CPT/HCPCS: 99213

== ENCOUNTER → 2021-08-20 16:02 | Outpatient (BNVA) | payer MEDICAID, SELFPAY ==
[2021-06-26 15:13] VITALS: BP 100/66; BMI 34.0
== END ==
PROVIDERS: PCP Internal Medicine; Visit Provider Internal Medicine
DX: E11.9 Type 2 diabetes mellitus without complications (principal)
CPT/HCPCS: 80053; 83036; 84443; G0103

== ENCOUNTER → 2021-08-22 12:45 | Outpatient (BNVA) | payer MEDICAID, SELFPAY ==
[2021-06-26 15:13] VITALS: BP 100/66; BMI 34.0
== END ==
PROVIDERS: PCP Internal Medicine; Visit Provider Anesthesiology
DX: M47.817 Spondylosis without myelopathy or radiculopathy, lumbosacral region (principal); M51.04 Intervertebral disc disorders with myelopathy, thoracic region; M51.26 Other intervertebral disc displacement, lumbar region; M54.2 Cervicalgia; R20.2 Paresthesia of skin; Z79.1 Long term (current) use of non-steroidal anti-inflammatories (NSAID); Z79.891 Long term (current) use of opiate analgesic
CPT/HCPCS: 99214

== ENCOUNTER 2021-09-19 15:26 | Outpatient (CLI) | payer MEDICAID, SELFPAY ==
[2021-06-26 15:13] VITALS: BP 100/66; BMI 34.0
--- NOTE | 2021-09-19 16:00 | MR_ITS ---
WS: [id number] MRI CERVICAL SPINE NONCONTRAST TECHNIQUE: Sagittal T1, T2 and STIR imaging. Axial T2, gradient, and fiesta imaging. CLINICAL INFORMATION: M54.2 - Cervicalgia COMPARISON: None. FINDINGS: Straightening of the normal cervical lordosis. Moderate to severe central canal stenosis C5-C6 and C6 -C7. Mild central canal stenosis C4-5. Suggestion of a tiny amount of signal abnormality in the cervi neha cord at C5-C6. Some images degraded by motion.Small amount of degenerative edema in the C5 and C6 vertebral bodies. C2-C3: Mild right and no significant left foraminal narrowing. Spinal canal is patent. C3-C4: Slight retrolisthesis C3 on C4. Disc osteophyte complex with endplate ridging. Mild central ca nal stenosis. Moderate left greater than right foraminal narrowing. C4-C5: Tiny central disc protrusion. Slight contact of the cervical cord. Mild central canal stenosis . Moderate left and mild right bony foraminal narrowing. Mild facet arthropathy. C5-C6: Disc osteophyte complex with endplate ridging. Moderate central canal stenosis with indentatio n on the cervical cord. Severe bilateral bony foraminal narrowing. C6-C7: Shallow central disc protrusion with slight indentation on cervical cord. Moderate to severe c entral canal stenosis. Moderate to severe left greater than right bony foraminal narrowing. Moderate facet arthropathy. C7-T1: Mild left and no significant right foraminal narrowing. Spinal canal is patent. Visualized brain stem structures: Normal. Prevertebral soft tissues: Normal. MR/MR cervical spin wo con* [id number] IMPRESSION: 1. Straightening of the normal cervical lordosis. Moderate to severe central c anal stenosis C5-C6 and C6-C7. Maximum area of stenosis measures approximately 5 mm in AP dimension just above the C6-7 disc space. 2. Tiny trace of signal abnormality in the cervical cord at the C5-C6 level. C ord signal otherwise appears normal considering artifact. 3. Small central protrusion C4-C5 with mild central canal stenosis and slight contact of the cervical cord. 4. Moderate to severe bony foraminal narrowing worse at C5-C6 and C6-C7.
== END 2021-09-19 15:27 | disposition home or self-care (01) ==
LOC: RADSHAW 15:32
PROVIDERS: PCP Internal Medicine; Visit Provider Anesthesiology
DX: M50.221 Other cervical disc displacement at C4-C5 level (principal)
CPT/HCPCS: 72141

== ENCOUNTER → 2021-09-26 13:41 | Outpatient (BNVA) | payer MEDICAID, SELFPAY ==
[2021-06-26 15:13] VITALS: BP 100/66; BMI 34.0
== END ==
PROVIDERS: PCP Internal Medicine; Referring Provider Anesthesiology; Visit Provider Physician Assistant
DX: M51.26 Other intervertebral disc displacement, lumbar region (principal); M47.817 Spondylosis without myelopathy or radiculopathy, lumbosacral region
CPT/HCPCS: 72050; 72110

== ENCOUNTER → 2021-10-17 13:43 | Outpatient (BNVA) | payer MEDICAID, SELFPAY ==
[2021-06-26 15:13] VITALS: BP 100/66; BMI 34.0
== END ==
PROVIDERS: PCP Internal Medicine; Visit Provider Anesthesiology
DX: G89.29 Other chronic pain (principal); M51.04 Intervertebral disc disorders with myelopathy, thoracic region; M51.26 Other intervertebral disc displacement, lumbar region; M47.817 Spondylosis without myelopathy or radiculopathy, lumbosacral region; M54.12 Radiculopathy, cervical region; M50.30 Other cervical disc degeneration, unspecified cervical region; G95.9 Disease of spinal cord, unspecified; Z79.1 Long term (current) use of non-steroidal anti-inflammatories (NSAID); R20.2 Paresthesia of skin; Z87.891 Personal history of nicotine dependence; Z79.891 Long term (current) use of opiate analgesic
CPT/HCPCS: 99214

== ENCOUNTER → 2021-10-30 14:10 | Outpatient (BNVA) | payer MEDICAID, SELFPAY ==
[2021-06-26 15:13] VITALS: BP 100/66; BMI 34.0
== END ==
PROVIDERS: PCP Internal Medicine; Visit Provider Psychiatry & Neurology Psychiatry
DX: F20.0 Paranoid schizophrenia (principal); F41.1 Generalized anxiety disorder
CPT/HCPCS: 99214

== ENCOUNTER → 2022-01-22 13:03 | Outpatient (BNVA) | payer MEDICAID, SELFPAY ==
[2021-12-09 12:06] VITALS: BP 100/66; BMI 34.0
== END ==
PROVIDERS: PCP Internal Medicine; Visit Provider Psychiatry & Neurology Psychiatry
DX: F07.81 Postconcussional syndrome; R42 Dizziness and giddiness; F41.1 Generalized anxiety disorder; F20.0 Paranoid schizophrenia
CPT/HCPCS: 99213

== ENCOUNTER → 2022-02-03 11:25 | Outpatient (BNVA) | payer MEDICAID, SELFPAY ==
[2021-12-09 12:06] VITALS: BP 100/66; BMI 34.0
== END ==
PROVIDERS: PCP Internal Medicine; Visit Provider Otolaryngology
DX: J37.0 Chronic laryngitis (principal); Z87.891 Personal history of nicotine dependence
CPT/HCPCS: 99212; 99213

== ENCOUNTER → 2022-04-16 12:59 | Outpatient (BNVA) | payer MEDICAID, SELFPAY ==
[2021-12-09 12:06] VITALS: BP 100/66; BMI 34.0
== END ==
PROVIDERS: PCP Internal Medicine; Visit Provider Psychiatry & Neurology Psychiatry
DX: F33.1 Major depressive disorder, recurrent, moderate (principal); F41.1 Generalized anxiety disorder; F20.0 Paranoid schizophrenia
CPT/HCPCS: 99214

== ENCOUNTER → 2023-04-28 14:58 | Outpatient (BNVA) | payer MEDICAID, SELFPAY ==
[2021-12-09 12:06] VITALS: BP 100/66; BMI 34.0
== END ==
PROVIDERS: PCP Family Medicine; Visit Provider Nurse Practitioner Family
DX: J02.9 Acute pharyngitis, unspecified (principal)
CPT/HCPCS: 87880

== ENCOUNTER 2023-09-01 12:37 | Outpatient (CLI) | payer MEDICAID, SELFPAY ==
[2021-12-09 12:06] VITALS: BP 100/66; BMI 34.0
[2023-09-01 13:02] VITALS: BMI 35.7
--- NOTE | 2023-09-01 13:08 | ECG_ITS ---
[facility] Test Date: 2023-09-01 Pat Name: Junior Barrios Department: Room: Gender: Male Motion Graphics Designer: : 1960 Requested By: Juon Tadeo Order Number: [id number] Sridevi MD: Alycia Mendes M.D. Interpretive Statements NAME OF STUDY: TREADMILL STRESS TEST INDICATION: Stable Angina PROCEDURE: At the baseline, the patient's blood pressure was 124/96 with a heart rate of 100. The baseline electrocardiogram showed normal sinus rhythm with normal ST-Ts.. The patient exercised for 2 minutes and 13 seconds on a standard Jcarlos protocol. Patient attained a maximum heart rate of 140 beats per minute(88% of the maximum predicted heart rate) with a blood pressure at the peak exercise of 138/100 mm Hg. The EKG at the peak exercise revealed no significant changes. Patient did not have any chest pain or any significant cardiac arrhythmias with the exercise During the recovery phase, there were no new changes. Blood pressure at the end of the recovery phase was 183/106 mm Hg with a heart rate of 95 per minute. CONCLUSION: 1. Normal EKG response to treadmill exercise 2. No exercise-induced chest pain or cardiac arrhythmia 3. Impaired exercise tolerance, attained a maximum of 4.6 METs 4. Maximum VO2 16.1. Electronically Signed On 09-04-2023 13:29:16 PROTOCOL OFFICER by Alycia Mendes M.D. [id number]
[2023-09-01 13:53] VITALS: BP 181/105; PULSE 92
== END 2023-09-01 12:38 | disposition home or self-care (01) ==
LOC: CDL 12:38
PROVIDERS: PCP Family Medicine; Visit Provider Family Medicine
DX: I20.89 Other forms of angina pectoris (principal)
CPT/HCPCS: 93017

== ENCOUNTER → 2023-09-16 15:48 | Outpatient (BNVA) | payer MEDICAID, SELFPAY ==
[2021-12-09 12:06] VITALS: BP 100/66; BMI 34.0
== END ==
PROVIDERS: PCP Family Medicine; Visit Provider Nurse Practitioner Family
DX: Z11.52 Encounter for screening for COVID-19 (principal)
CPT/HCPCS: 87426

== ENCOUNTER → 2023-10-21 14:06 | Outpatient (BNVA) | payer MEDICAID, SELFPAY ==
[2021-12-09 12:06] VITALS: BP 100/66; BMI 34.0
== END ==
PROVIDERS: PCP Family Medicine; Visit Provider Psychiatry & Neurology Psychiatry
DX: F20.0 Paranoid schizophrenia (principal); Z79.899 Other long term (current) drug therapy
CPT/HCPCS: 80053; 80061; 83036; 83721; 84443

== ENCOUNTER → 2024-10-06 13:00 | Outpatient (BNVA) | payer MEDICAID, SELFPAY ==
[2023-10-29 10:29] VITALS: BP 126/76; BMI 35.0
== END ==
PROVIDERS: PCP Family Medicine; Visit Provider Family Medicine
DX: Z12.5 Encounter for screening for malignant neoplasm of prostate (principal); I10 Essential (primary) hypertension; E11.9 Type 2 diabetes mellitus without complications; G62.9 Polyneuropathy, unspecified; E03.9 Hypothyroidism, unspecified; E55.9 Vitamin D deficiency, unspecified; R79.89 Other specified abnormal findings of blood chemistry
CPT/HCPCS: 80053; 80061; 82043; 82306; 82607; 82746; 83036; 84439; 84443; 85025; G0103

== ENCOUNTER → 2024-11-02 14:51 | Outpatient (BNVA) | payer MEDICAID, SELFPAY ==
[2024-10-13 10:54] VITALS: BP 117/78; BMI 32.3
== END ==
PROVIDERS: PCP Family Medicine; Visit Provider Podiatrist Foot & Ankle Surgery
DX: E11.9 Type 2 diabetes mellitus without complications (principal); G62.9 Polyneuropathy, unspecified
CPT/HCPCS: 99203

== ENCOUNTER → 2024-11-15 12:02 | Outpatient (BNVA) | payer MEDICAID, SELFPAY ==
[2024-10-13 10:54] VITALS: BP 117/78; BMI 32.3
== END ==
PROVIDERS: PCP Family Medicine; Visit Provider Emergency Medicine
DX: R50.9 Fever, unspecified (principal)
CPT/HCPCS: 87400

== ENCOUNTER 2025-01-26 08:43 | Outpatient (CLI) | payer MEDICAID, SELFPAY ==
[2024-10-13 10:54] VITALS: BP 117/78; BMI 32.3
[2025-01-26 09:48] LABS: Add Urine Microscopic? NO
[2025-01-26 09:50] LABS: Basophils # 0.1 10^3/uL (0.0-0.1); Basophils % 1.2 %; Eosinophils # 0.4 10^3/uL (0.0-0.8); Eosinophils % 4.7 %; Hematocrit 47.9 % (37-53); Lymphocytes # 2.3 10^3/uL (0.8-4.8); Lymphocytes % 25.3 %; Mean Corpuscular HGB Conc 32.6 g/dL (30-55); Mean Corpuscular Hemoglobin 28.5 pg (27-33); Mean Corpuscular Volume 87.6 fl (82-101); Monocytes # 0.5 10^3/uL (0.2-0.9); Monocytes % 5.3 %; Neutrophils # 5.69 10^3/uL (1.8-7.7); Neutrophils % 62.4 %; Nucleated Red Blood Cells % 0 %; Platelet Count 225 10^3/cmm (157-399); Red Blood Count 5.47 10^6/uL (3.85-5.65); Red Cell Distribution Width 13.7 % (12.1-15.1); White Blood Count 9.12 10^3/uL (3.29-11.43)
[2025-01-26 09:53] LABS: Bilirubin Urine Neg (Negative); Blood Urine Neg (Negative); Glucose Urine UA 4+ (Normal); Ketones Urine Negative (Negative); Leukocyte Esterase Urine Negative (Negative); Nitrate Urine Negative (Negative); Protein Urine Neg (Negative); Urine Appearance Clear (CLEAR); Urine Color Yellow (Yellow); Urobilinogen Urine Norm (Negative); pH Urine 6 (5-7)
[2025-01-26 09:54] LABS: Add Urine Culture? No; Charge for UA Resulting for Rev
[2025-01-26 10:11] LABS: Alanine Aminotransferase 18 U/L (0-41); Albumin Level 4.3 g/dL (3.5-5.2); Alkaline Phosphatase 96 U/L (40-130); Anion Gap 15.5 (5-19); Aspartate Amino Transferase 17 U/L (0-40); Blood Urea Nitrogen 13 mg/dL (8-23); Calcium 9.1 mg/dL (8.5-10.5); Carbon Dioxide 25 mmol/L (22-29); Chloride 102 mmol/L (98-107); Globulin 2.7 g/dL (1.3-4.6); Glomerular Filtration Rate 97.6 mL/min (90-130); Glucose 112 mg/dL (65-115); Osmolality Calculated 287 mOsm/kg (285-295); Potassium 4.5 mmol/L (3.5-5.1); Sodium 138 mmol/L (136-145); Total Bilirubin 0.3 mg/dL (0.15-1.2)
== END 2025-01-26 08:44 | disposition home or self-care (01) ==
PROVIDERS: PCP Family Medicine; Visit Provider Family Medicine
DX: E87.6 Hypokalemia (principal); I10 Essential (primary) hypertension; E11.9 Type 2 diabetes mellitus without complications; E03.9 Hypothyroidism, unspecified; G62.9 Polyneuropathy, unspecified
CPT/HCPCS: 36415; 80053; 81003; 85025

== ENCOUNTER → 2025-05-03 15:02 | Outpatient (BNVA) | payer OTHER, SELFPAY ==
[2024-10-13 10:54] VITALS: BP 117/78; BMI 32.3
== END ==
PROVIDERS: PCP Family Medicine; Visit Provider Podiatrist Foot & Ankle Surgery
DX: E11.40 Type 2 diabetes mellitus with diabetic neuropathy, unspecified (principal); L60.3 Nail dystrophy; G62.9 Polyneuropathy, unspecified; L84 Corns and callosities
CPT/HCPCS: 99213

== ENCOUNTER → 2025-07-12 13:45 | Outpatient (BNVA) | payer MEDICAID, SELFPAY ==
[2024-10-13 10:54] VITALS: BP 117/78; BMI 32.3
== END ==
PROVIDERS: PCP Family Medicine; Visit Provider Podiatrist Foot & Ankle Surgery
DX: E11.42 Type 2 diabetes mellitus with diabetic polyneuropathy (principal); L60.3 Nail dystrophy; L84 Corns and callosities; E11.8 Type 2 diabetes mellitus with unspecified complications; G62.9 Polyneuropathy, unspecified; E11.40 Type 2 diabetes mellitus with diabetic neuropathy, unspecified
CPT/HCPCS: 11721

== ENCOUNTER → 2025-10-04 08:46 | Outpatient (BNVA) | payer MEDICAID, SELFPAY ==
[2024-10-13 10:54] VITALS: BP 117/78; BMI 32.3
== END ==
PROVIDERS: PCP Family Medicine; Visit Provider Podiatrist Foot & Ankle Surgery
DX: E11.42 Type 2 diabetes mellitus with diabetic polyneuropathy (principal); L60.3 Nail dystrophy; L84 Corns and callosities; E11.8 Type 2 diabetes mellitus with unspecified complications; G62.9 Polyneuropathy, unspecified; E11.40 Type 2 diabetes mellitus with diabetic neuropathy, unspecified
CPT/HCPCS: 11721